=== PATIENT | male | born 1980 | race African-American/Black ===

== ENCOUNTER 2017-04-11 14:59 | Emergency (ER) | payer SELFPAY ==
[~2017-04-11] VITALS: Ht 185.4 cm; Wt 86.2 kg
[2017-04-11 15:12] VITALS: BP 160/98
--- NOTE | 2017-04-11 15:37 | Emergency Room Report ---
History of Present Illness General Chief Complaint: Medical Clearance Source: Patient Present Illness HPI 36 y/o male c/o cut on right thumb and for med clearance for booking. Cut his thumb. Doesn't remember how. Was treated on seen by paramedics with a bandaid. No complications. Patient has no pain. States he has FROM of thumb. Patient denies any numbness, tingling, pressure, paralysis, cyanosis, bruising, loss of sensation, or loss of range of motion. Allergies: Coded Allergies: No Known Allergies (Unverified , 04/11/17) Patient History Immunizations: UTD Reviewed Nursing Documentation: PMH: Agreed, PSxH: Agreed Nursing Documentation-PMH Past Medical History: No Stated History Review of Systems All Other Systems: negative except mentioned in HPI Physical Exam Vital Signs Date Time Temp Pulse Resp B/P (MAP) Pulse Ox O2 Delivery O2 Flow Rate FiO2 04/11/17 15:02 98.8 98 20 160/98 99 Room Air Sp02 EP Interpretation: reviewed, normal General Appearance: no apparent distress, alert, GCS 15, non-toxic Head: normocephalic, atraumatic Eyes: bilateral eye normal inspection, bilateral eye PERRL Respiratory: normal breath sounds, no respiratory distress Cardiovascular #1: normal capillary refill Musculoskeletal: digits/nails normal, gait/station normal Skin: normal color, no rash, warm/dry, well hydrated, laceration - superficial laceration of right thumb Medical Decision Making PA Attestation Dr. Montelongo my supervising physician with whom patient management has been discussed with. Diagnostic Impression: Primary Impression: Laceration of thumb without complication Qualified Codes: S61.011A - Laceration without foreign body of right thumb without damage to nail, initial encounter ER Course Pt. presents to the ED c/o laceration / clearance to book Ddx considered but are not limited to avulsion, laceration, abrasion, fracture, tendon rupture, contusion Vital signs: are WNL, pt. is afebrile H&PE are most consistent with superficial laceration to right thumb ORDERS: none required at this time, the diagnosis is clinical ED INTERVENTIONS: wound care, bandaid DISCHARGE: At this time pt. is stable for d/c to home. Will provide printed patient care instructions, and any necessary prescriptions. Care plan and follow up instructions have been discussed with the patient prior to discharge. Last Vital Signs Date Time Temp Pulse Resp B/P (MAP) Pulse Ox O2 Delivery O2 Flow Rate FiO2 04/11/17 15:02 98.8 98 20 160/98 99 Room Air Disposition: D/C TO LAW ENFORCEMENT IN [facility] Condition: Stable Additional Instructions: Keep wound clean and dry. Avoid sun exposure to minimize scarring. Patient advised that they can take a shower or bath, but be sure to pat the area dry with a towel afterward. Patient should come back sooner if they experience any red areas that get bigger, more swollen, have pus draining from wound, or if the site becomes more painful. MARCO SANCHEZ Apr 11, 2017 15:37
[2017-04-11 15:45] VITALS: BP 160/98
== END 2017-04-11 15:45 ==
LOC: EMR 15:35
DX: S61.012A Laceration without foreign body of left thumb without damage to nail, initial encounter (principal); W45.8XXA Other foreign body or object entering through skin, initial encounter; Y92.9 Unspecified place or not applicable
CPT/HCPCS: 99282